=== PATIENT | female | born 1955 | race Caucasian/White ===

== ENCOUNTER → 2021-10-30 06:57 | Outpatient (CLI) | payer MEDICARE, OTHER, SELFPAY | PROVIDERS: PCP Emergency Medicine; Visit Provider Emergency Medicine | DX: R30.0 Dysuria (principal); B96.29 Other Escherichia coli [E. coli] as the cause of diseases classified elsewhere | CPT/HCPCS: 87086; 87088; 87186 ==

== ENCOUNTER → 2022-04-02 10:00 | Outpatient (CLI) | payer MEDICARE, OTHER, SELFPAY ==
[2022-04-02 14:56] LABS: Basophils # 0.1 K/mm3 (0-0.2); Basophils % 0.8 % (0.1-2.0); Eosinophils # 0.1 K/mm3 (0.0-0.4); Eosinophils % 1.3 % (0.1-12.0); Hematocrit 42.3 % (37.0-47.0); Hemoglobin 13.3 g/dL (12.2-16.2); Lymphocytes # 2.9 K/mm3 (0.7-4.5); Lymphocytes % 38.5 % (10-50); Mean Corpuscular HGB Conc 31.4 g/dL (31.8-35.4); Mean Corpuscular Hemoglobin 28.8 pg (27.0-31.2); Mean Corpuscular Volume 91.7 fl (81-99); Mean Platelet Volume 8.2 fl (7.4-10.4); Monocytes # 0.3 K/mm3 (0.1-1.0); Monocytes % 4.4 % (1.7-9.3); Neutrophils # 4.1 K/mm3 (1.8-7.8); Platelet Count 303 K/mm3 (142-424); Red Blood Count 4.61 M/mm3 (4.20-5.40); White Blood Count 7.5 K/mm3 (4.8-10.8)
[2022-04-02 15:16] LABS: Alanine Aminotransferase 15 U/L (12-78); Albumin Level 4.1 g/dl (3.5-5.0); Albumin/Globulin Ratio 1.7 (1.1-1.8); Alkaline Phosphatase 109 U/L (38-126); Anion Gap 8.8 mEq/L (5-15); Aspartate Amino Transferase 23 U/L (14-36); Bilirubin,Total 0.3 mg/dl (0.2-1.3); Blood Urea Nitrogen 17 mg/dl (7-17); Calcium 9.2 mg/dl (8.4-10.2); Carbon Dioxide 34 mmol/L (22.0-30.0); Chloride 102 mmol/L (98-107); Chol/HDL Ratio 3.1 (1-3.5); Cholesterol 133 mg/dl (140-200); Estimated Glomerular Filt Rate 83 ml/min (>60); GFR (African American) 101 ML/MIN (>60); Globulin 2.4 g/dL (1.3-3.2); Glucose 69 mg/dl (74-100); HDL Cholesterol 43 mg/dl (40-60); Potassium 3.8 mmoL/L (3.5-5.1); Sodium 141 mmol/L (136-145); Total Protein,Serum 6.5 g/dl (6.3-8.2); Triglycerides 220 mg/dl (30-150); VLDL Cholesterol 44 mg/dL (0-40)
[2022-04-02 15:27] LABS: Direct LDL Cholesterol 59.01 mg/dL (100-129)
[2022-04-02 15:33] LABS: 25-OH Vitamin D, Total 23.4 ng/mL (30-100)
[2022-04-02 15:47] LABS: Thyroid Stimulating Hormone 3.83 uIU/mL (0.465-4.68)
[2022-04-02 15:55] LABS: Hemoglobin A1C 6.1 % (4.0-6.0)
== END ==
PROVIDERS: PCP Emergency Medicine; Visit Provider Emergency Medicine
DX: E11.9 Type 2 diabetes mellitus without complications (principal); E55.9 Vitamin D deficiency, unspecified; Z79.84 Long term (current) use of oral hypoglycemic drugs; Z79.899 Other long term (current) drug therapy
CPT/HCPCS: 80053; 80061; 82306; 83036; 84439; 84443; 85025

== ENCOUNTER → 2022-04-25 08:10 | Outpatient (CLI) | payer MEDICARE, OTHER, SELFPAY | PROVIDERS: PCP Emergency Medicine; Visit Provider Nurse Practitioner Family | DX: Z78.0 Asymptomatic menopausal state (principal) ==

== ENCOUNTER → 2022-07-22 23:13 | Outpatient (CLI) | payer MEDICARE, OTHER, SELFPAY | PROVIDERS: PCP Emergency Medicine; Visit Provider Emergency Medicine | DX: R82.90 Unspecified abnormal findings in urine (principal); B96.29 Other Escherichia coli [E. coli] as the cause of diseases classified elsewhere | CPT/HCPCS: 87086; 87088; 87186 ==

== ENCOUNTER → 2022-08-08 14:17 | Outpatient (CLI) | payer MEDICARE, OTHER, SELFPAY ==
--- NOTE | 2022-08-08 14:26 | XR_ITS ---
FINAL REPORT CLINICAL HISTORY: diabetic right foot ulcer COMPARISON: None FINDINGS: RIGHT FOOT: Three views of the right foot were obtained. There is no acute fracture or dislocation. Hallux valgus deformity. Moderate degenerative change 1st MTP. Mild degenerative change elsewhere. Small calcaneal spurs. IMPRESSION: Degenerative changes with no acute bony abnormality. Reviewed, Interpreted and Dictated by Toy Gore III, MD Transcribed by Kaylie Deutsch Authenticated and [facility]
--- NOTE | 2022-08-08 14:26 | XR_ITS ---
FINAL REPORT CLINICAL HISTORY: diabetic left foot ulcer COMPARISON: None FINDINGS: LEFT FOOT: Three views of the left foot were obtained. There is no acute fracture or dislocation. There is hallux valgus deformity. There is mild degenerative change. There are small calcaneal spurs. No acute bony erosions. IMPRESSION: Degenerative change with no acute bony abnormality. Reviewed, Interpreted and Dictated by Toy Gore III, MD Transcribed by Kaylie Deutsch Authenticated and [facility]
[2022-08-08 15:55] LABS: Basophils % 0.8 % (0.1-2.0); Eosinophils # 0.1 K/mm3 (0.0-0.4); Eosinophils % 1.5 % (0.1-12.0); Hematocrit 39.1 % (37.0-47.0); Hemoglobin 12.3 g/dL (12.2-16.2); Lymphocytes # 2.7 K/mm3 (0.7-4.5); Lymphocytes % 48.5 % (10-50); Mean Corpuscular HGB Conc 31.6 g/dL (31.8-35.4); Mean Corpuscular Hemoglobin 29.1 pg (27.0-31.2); Mean Platelet Volume 7.6 fl (7.4-10.4); Monocytes # 0.3 K/mm3 (0.1-1.0); Monocytes % 5.9 % (1.7-9.3); Neutrophils # 2.4 K/mm3 (1.8-7.8); Neutrophils % 43.4 % (37.0-80.0); Platelet Count 314 K/mm3 (142-424); Red Blood Count 4.24 M/mm3 (4.20-5.40); White Blood Count 5.6 K/mm3 (4.8-10.8)
[2022-08-08 16:10] LABS: Chloride 100 mmol/L (98-107)
[2022-08-08 16:11] LABS: Potassium 4.1 mmoL/L (3.5-5.1); Sodium 138 mmol/L (136-145)
[2022-08-08 16:13] LABS: Alanine Aminotransferase 39 U/L (12-78); Alkaline Phosphatase 116 U/L (38-126); Aspartate Amino Transferase 42 U/L (14-36); Bilirubin,Total 0.3 mg/dl (0.2-1.3); Blood Urea Nitrogen 13 mg/dl (7-17); Estimated Glomerular Filt Rate 83 ml/min (>60); GFR (African American) 101 ML/MIN (>60)
[2022-08-08 16:14] LABS: Albumin Level 3.9 g/dl (3.5-5.0); Albumin/Globulin Ratio 1.6 (1.1-1.8); Anion Gap 8.1 mEq/L (5-15); Calcium 8.9 mg/dl (8.4-10.2); Carbon Dioxide 34 mmol/L (22.0-30.0); Globulin 2.5 g/dL (1.3-3.2); Glucose 73 mg/dl (74-100); Total Protein,Serum 6.4 g/dl (6.3-8.2)
[2022-08-08 16:19] LABS: C-Reactive Protein 2.7 mg/L (0-4)
[2022-08-08 18:08] LABS: Erythrocyte Sedimentation Rate 19 mm/hr (0-30)
== END ==
PROVIDERS: PCP Emergency Medicine; Visit Provider Podiatrist
DX: E11.621 Type 2 diabetes mellitus with foot ulcer (principal); L97.509 Non-pressure chronic ulcer of other part of unspecified foot with unspecified severity; Z79.84 Long term (current) use of oral hypoglycemic drugs
CPT/HCPCS: 36415; 73630; 80053; 85025; 85651; 86140

== ENCOUNTER → 2022-09-02 10:21 | Outpatient (CLI) | payer MEDICARE, OTHER, SELFPAY ==
--- NOTE | 2022-09-02 10:31 | XR_ITS ---
FINAL REPORT CLINICAL HISTORY: left wrist pain FINDINGS: 3 views of the left wrist were obtained. There is no acute fracture or dislocation. There are mild and moderate degenerative changes greatest at the radial aspect of the wrist. There is no soft tissue abnormality. IMPRESSION: Mild and moderate degenerative change. Reviewed, Interpreted and Dictated by Toy Gore III, MD Transcribed by [employer] Authenticated and [facility]
== END ==
PROVIDERS: PCP Emergency Medicine; Visit Provider Orthopaedic Surgery
DX: M25.532 Pain in left wrist (principal)
CPT/HCPCS: 73110

== ENCOUNTER → 2022-09-10 11:37 | Outpatient (CLI) | payer MEDICARE, OTHER, SELFPAY ==
--- NOTE | 2022-09-10 11:43 | XR_ITS ---
FINAL REPORT CLINICAL HISTORY: Rt knee pain x 1 month, NKT, pain @ medial epicondyle. FINDINGS: Right knee Four views were obtained. There is no acute fracture or dislocation. The joint spaces appear normal. No joint effusion is identified. No soft tissue abnormality is identified. IMPRESSION: No acute process. Reviewed, Interpreted and Dictated by Toy Gore III, MD Transcribed by Janel Aparicio Authenticated and . [facility]
--- NOTE | 2022-09-10 11:43 | XR_ITS ---
FINAL REPORT CLINICAL HISTORY: Lt knee pain @ internal epicondyle x 1 month, NKT. Pain radiates up to ischium FINDINGS: Left knee Three views were obtained. There is no acute fracture or dislocation. There are mild degenerative changes. Small joint effusion is identified. No soft tissue abnormality is identified. IMPRESSION: Mild degenerative changes and small joint effusion. Reviewed, Interpreted and Dictated by Toy Gore III, MD Transcribed by Janel Aparicio Authenticated and [facility]
== END ==
PROVIDERS: PCP Emergency Medicine; Visit Provider Orthopaedic Surgery
DX: M25.561 Pain in right knee (principal); M25.562 Pain in left knee
CPT/HCPCS: 73562

== ENCOUNTER → 2022-10-01 23:13 | Outpatient (CLI) | payer MEDICARE, OTHER, SELFPAY ==
[2022-10-01 18:58] LABS: Amphetamine/Metha Screen,Urine Positive ng/ml (<1000); Barbiturates Screen,Urine Negative ng/ml (<200)
[2022-10-01 18:59] LABS: Benzodiazepines Screen,Urine Positive ng/ml (<200)
[2022-10-01 19:00] LABS: Cannabinoid Screen,Urine Negative ng/ml (<50); Cocaine Screen,Urine Negative ng/ml (<300)
[2022-10-01 19:01] LABS: Methadone Screen,Urine Negative ng/ml (<300)
[2022-10-01 19:02] LABS: Opiate Screen,Urine Positive ng/ml (<300)
[2022-10-01 19:03] LABS: Phencyclidine Screen,Urine Negative ng/ml (<25)
== END ==
PROVIDERS: PCP Emergency Medicine; Visit Provider Emergency Medicine
DX: Z79.899 Other long term (current) drug therapy (principal)
CPT/HCPCS: 80305

== ENCOUNTER → 2022-10-08 14:00 | Outpatient (CLI) | payer MEDICARE, OTHER, SELFPAY ==
[2022-10-08 19:52] LABS: Phencyclidine Screen,Urine Negative ng/ml (<25)
[2022-10-08 19:59] LABS: Amphetamine/Metha Screen,Urine Negative ng/ml (<1000)
[2022-10-08 20:00] LABS: Barbiturates Screen,Urine Negative ng/ml (<200)
[2022-10-08 20:01] LABS: Benzodiazepines Screen,Urine Positive ng/ml (<200); Cannabinoid Screen,Urine Negative ng/ml (<50)
[2022-10-08 20:03] LABS: Methadone Screen,Urine Negative ng/ml (<300)
[2022-10-08 20:04] LABS: Cocaine Screen,Urine Negative ng/ml (<300); Opiate Screen,Urine Negative ng/ml (<300)
== END ==
PROVIDERS: PCP Emergency Medicine; Visit Provider Emergency Medicine
DX: Z79.899 Other long term (current) drug therapy (principal); N39.0 Urinary tract infection, site not specified
CPT/HCPCS: 80305; 87086

== ENCOUNTER → 2022-12-04 23:16 | Outpatient (CLI) | payer MEDICARE, OTHER, SELFPAY ==
[2022-12-04 19:37] LABS: Amphetamine/Metha Screen,Urine Positive ng/ml (<1000)
[2022-12-04 19:38] LABS: Barbiturates Screen,Urine Negative ng/ml (<200)
[2022-12-04 19:39] LABS: Benzodiazepines Screen,Urine Positive ng/ml (<200); Cannabinoid Screen,Urine Negative ng/ml (<50)
[2022-12-04 19:40] LABS: Cocaine Screen,Urine Negative ng/ml (<300)
[2022-12-04 19:41] LABS: Methadone Screen,Urine Negative ng/ml (<300)
[2022-12-04 19:42] LABS: Opiate Screen,Urine Negative ng/ml (<300); Phencyclidine Screen,Urine Negative ng/ml (<25)
[2022-12-04 19:58] LABS: Creatinine,Urine Random 36 mg/dL (Not Estab.); Microalbumin < 6.000 mg/L (0-16.7)
== END ==
PROVIDERS: PCP Emergency Medicine; Visit Provider Emergency Medicine
DX: Z79.899 Other long term (current) drug therapy (principal); E11.9 Type 2 diabetes mellitus without complications; N39.0 Urinary tract infection, site not specified; B95.2 Enterococcus as the cause of diseases classified elsewhere; Z79.84 Long term (current) use of oral hypoglycemic drugs
CPT/HCPCS: 80305; 82043; 82570; 87086; 87088; 87186

== ENCOUNTER → 2022-12-30 11:11 | Outpatient (CLI) | payer MEDICARE, OTHER, SELFPAY ==
--- NOTE | 2022-12-30 11:15 | XR_ITS ---
FINAL REPORT CLINICAL HISTORY: neck pain FINDINGS: CERVICAL SPINE Five views were obtained. There is no acute fracture. There are moderate degenerative changes with multilevel osteophytes. There is no malalignment. IMPRESSION: Moderate degenerative changes. Reviewed, Interpreted and Dictated by Toy Gore III, MD Transcribed by Janel Aparicio Authenticated and [facility]
--- NOTE | 2022-12-30 11:15 | XR_ITS ---
FINAL REPORT CLINICAL HISTORY: knee pain FINDINGS: LEFT KNEE Three views were obtained. There is no fracture or dislocation. Mild degenerative changes are present. No soft tissue abnormality is identified. IMPRESSION: No acute process. Reviewed, Interpreted and Dictated by Toy Gore III, MD Transcribed by Janel Aparicio Authenticated and [facility]
== END ==
PROVIDERS: PCP Emergency Medicine; Visit Provider Emergency Medicine
DX: M54.2 Cervicalgia; M25.562 Pain in left knee
CPT/HCPCS: 72050; 73562

== ENCOUNTER → 2023-02-09 06:44 | Outpatient (CLI) | payer MEDICARE, OTHER, SELFPAY ==
[2023-02-09 20:21] LABS: Amphetamine/Metha Screen,Urine Negative ng/ml (<1000); Barbiturates Screen,Urine Negative ng/ml (<200)
[2023-02-09 20:22] LABS: Benzodiazepines Screen,Urine Positive ng/ml (<200)
[2023-02-09 20:23] LABS: Cannabinoid Screen,Urine Negative ng/ml (<50); Cocaine Screen,Urine Negative ng/ml (<300)
[2023-02-09 20:24] LABS: Methadone Screen,Urine Negative ng/ml (<300); Opiate Screen,Urine Negative ng/ml (<300)
[2023-02-09 20:25] LABS: Phencyclidine Screen,Urine Negative ng/ml (<25)
== END ==
PROVIDERS: PCP Emergency Medicine; Visit Provider Emergency Medicine
DX: M54.2 Cervicalgia (principal)
CPT/HCPCS: 80305

== ENCOUNTER → 2023-03-02 17:06 | Outpatient (CLI) | payer MEDICARE, OTHER, SELFPAY ==
--- NOTE | 2023-03-02 17:07 | MR_ITS ---
FINAL REPORT CLINICAL HISTORY: neck pain. PATIENT FELL AND HIT LEFT SIDE OF HEAD AND NECK PAIN SINCE. RIGHT SIDED NECK PAIN. HEADACHE COMPARISON: None FINDINGS: Multi planar MR imaging was obtained of the cervical spine. There is abnormal decreased signal throughout the cervical discs. The vertebrae are of normal height. There is no malalignment. The cervical cord demonstrates normal signal and configuration. C2-C3: There is no evidence of significant disc bulge or protrusion. There is no significant facet hypertrophy. C3-C4: A moderate annular bulge is present along with endplate hypertrophy eccentric to the right. There is moderate right neural foraminal narrowing. C4-C5: A moderate annular bulge is present along with endplate hypertrophy. There is moderate bilateral neuroforaminal narrowing present. C5-C6: There is no evidence of significant disc bulge or protrusion. There is no significant facet hypertrophy. C6-C7: A mild to moderate bulge is present along with mild to moderate bilateral neural foraminal narrowing. C7-T1: There is a left posterolateral disc protrusion with high-grade compromise of the left C7 and T1 neural foramen. IMPRESSION: Multilevel cervical disc disease, with neuroforaminal narrowing most severe on the left side at the C7-T1 level as described. Reviewed, Interpreted and Dictated by Azael Lindsey MD Transcribed by Mariana Santamaria Authenticated and [facility]
== END ==
PROVIDERS: PCP Emergency Medicine; Visit Provider Emergency Medicine
DX: M54.2 Cervicalgia (principal)
CPT/HCPCS: 72141; 76376

== ENCOUNTER → 2023-03-10 07:11 | Outpatient (CLI) | payer MEDICARE, OTHER, SELFPAY ==
[2023-03-10 22:09] LABS: Amphetamine/Metha Screen,Urine Negative ng/ml (<1000)
[2023-03-10 22:10] LABS: Barbiturates Screen,Urine Negative ng/ml (<200)
[2023-03-10 22:11] LABS: Benzodiazepines Screen,Urine Positive ng/ml (<200); Cocaine Screen,Urine Negative ng/ml (<300)
[2023-03-10 22:12] LABS: Methadone Screen,Urine Negative ng/ml (<300)
[2023-03-10 22:13] LABS: Cannabinoid Screen,Urine Negative ng/ml (<50); Opiate Screen,Urine Positive ng/ml (<300)
[2023-03-10 22:14] LABS: Phencyclidine Screen,Urine Negative ng/ml (<25)
== END ==
PROVIDERS: PCP Emergency Medicine; Visit Provider Emergency Medicine
DX: N39.0 Urinary tract infection, site not specified (principal); Z79.899 Other long term (current) drug therapy; B96.29 Other Escherichia coli [E. coli] as the cause of diseases classified elsewhere
CPT/HCPCS: 80305; 87086

== ENCOUNTER 2023-05-08 18:25 | Outpatient (CLI) | payer MEDICARE, OTHER, SELFPAY ==
[2023-05-08 18:36] LABS: Amphetamine/Metha Screen,Urine Negative ng/ml (<1000)
[2023-05-08 18:37] LABS: Barbiturates Screen,Urine Negative ng/ml (<200)
[2023-05-08 18:38] LABS: Benzodiazepines Screen,Urine Negative ng/ml (<200); Cannabinoid Screen,Urine Negative ng/ml (<50)
[2023-05-08 18:40] LABS: Cocaine Screen,Urine Negative ng/ml (<300)
[2023-05-08 18:42] LABS: Phencyclidine Screen,Urine Negative ng/ml (<25)
[2023-05-08 18:52] LABS: Opiate Screen,Urine Negative ng/ml (<300)
[2023-05-08 20:11] LABS: Methadone Screen,Urine Negative ng/ml (<300)
[2023-05-13 13:11] LABS: Alprazolam Negative (Cutoff=100); Benzodiazepines Positive ng/mL (Cutoff=100); Clonazepam Negative (Cutoff=100); Flurazepam Negative (Cutoff=100); Lorazepam Negative (Cutoff=100); Midazolam Negative (Cutoff=100); Opiates Negative (Cutoff=100); Temazepam Negative (Cutoff=100); Triazolam Negative (Cutoff=100)
== END 2023-05-08 23:59 ==
PROVIDERS: PCP Internal Medicine; Visit Provider Internal Medicine
DX: N39.0 Urinary tract infection, site not specified (principal); Z79.899 Other long term (current) drug therapy; B96.29 Other Escherichia coli [E. coli] as the cause of diseases classified elsewhere
CPT/HCPCS: 80307; 80346; 80361; 80365; 87086; G0480

== ENCOUNTER 2024-12-23 10:03 | Outpatient (CLI) | payer MEDICARE, OTHER, SELFPAY ==
--- OUTSIDE RECORDS SUMMARY | 2024-07-23 17:30 | XMS_ITS ---
Author Organization [facility] Address [address] [place] [address] Care Team Providers Care Catheterization Laboratory Technician Name Role Phone Pop Ellington Primary Care Provider Migration, Provider Unavailable Unavailable [facility]AS[facility] VISIT [facility] Encounter Medications Medication SIG (Take, Route, Frequency, Duration) Notes Start Date End Date Status Tylenol Extra Strength 500 MG 2 tab(s) orally Q6H prn Active Jardiance 25 MG 1 tab(s) orally once a day (in the morning) Active DULoxetine HCl 30 MG 1 cap(s) orally 2 times a day; Duration: 30 day(s) 07/22/2021 Active Methocarbamol 750 MG 1 tab(s) orally 1-2 times daily Active Ciprofloxacin HCl 500 MG 1 tab(s) orally every 12 hours; Duration: 10 day(s) 07/22/2021 Active Pantoprazole Sodium 40 MG 1 tab(s) orally once a day; Duration: 30 day(s) Active Atorvastatin Calcium 80 MG 1 tab(s) orally once a day; Duration: 30 day(s) Active Vitamin D3 10 MCG 1 TAB(S) ORALLY ONCE A DAY *Please review and pick correct strength-formulatio n from [employer] options. If intended option is not shown, discontinue and re-order from Quick Search* Active Cetirizine HCl 10 MG 1 tab(s) orally once a day Active Aspirin 325 MG 1 tab(s) orally once a day Active Macrobid 100 MG 1 cap(s) orally 2 times a day; Duration: 7 days 07/29/2021 Active diazePAM 5 MG 1 tab(s) orally 1-2 times daily prn Active Naproxen 500 MG 1 tab(s) orally 2 times a day prn Active Montelukast Sodium 10 MG 1 tab(s) orally once a day; Duration: 30 day(s) Active Levothyroxine Sodium 25 MCG 1 tab(s) orally once a day; Duration: 30 day(s) Active glipiZIDE ER 5 MG 1 tab(s) orally once a day; Duration: 90 days has been out 2 weeks Active Gabapentin 800 MG 1 cap(s) orally 3 times a day; Duration: 30 days 03/31/2011 Active guaiFENesin 400 MG 1 tab(s) orally every 4 hours prn Active Encounters Encounter Location Date Provider Diagnosis [facility] [address] [place] [address] 07/23/2024 Provider Migration Dysuria R30.0 ; Diabetes mellitus type 2, noninsulin dependent E11.9 and Generalized anxiety disorder F41.1 Assessments Encounter Date Diagnosis (ICD Code) Assessment Notes Treatment Notes Treatment Clinical Notes Section Notes 07/23/2024 Dysuria (ICD-10 - R30.0) 07/23/2024 Diabetes mellitus type 2, noninsulin dependent (ICD-10 - E11.9) 07/23/2024 Generalized anxiety disorder (ICD-10 - F41.1) Plan Of Treatment Medication Medication Name Sig Start Date Stop Date Notes DULoxetine HCl 30 MG 1 cap(s) orally 2 times a day; Duration: 30 day(s) 07/22/2021 Ciprofloxacin HCl 500 MG 1 tab(s) orally every 12 hours; Duration: 10 day(s) 07/22/2021 Macrobid 100 MG 1 cap(s) orally 2 times a day; Duration: 7 days 07/29/2021 glipiZIDE ER 5 MG 1 tab(s) orally once a day; Duration: 90 days has been out 2 weeks Gabapentin 800 MG 1 cap(s) orally 3 times a day; Duration: 30 days 03/31/2011 Progress Notes * Eun MASSEY:[birth year] (69 yo F)Acc No.[id number]:07/23/2024 Patient: Eun LUCERO Provider: Lance Nunez DOB:1955 A ge:69 Y S ex:Female Date:07/23/2024 Address:[address] [place] [address] [address], [place], [id number] Pcp:Pop Ellington Subjective: * Chief Complaints: * 1 . [facility] Conversion Encounter. * Medical History: * Medications: T aking guaiFENesin 400 MG Tablet 1 tab(s) orally every 4 hours prn , Taking Naproxen 500 MG Tablet Delayed Release 1 tab(s) orally 2 times a day prn , Taking diazePAM 5 MG Tablet 1 tab(s) orally 1-2 times daily prn , Taking Levothyroxine Sodium 25 MCG Tablet 1 tab(s) orally once a day , Taking Montelukast Sodium 10 MG Tablet 1 tab(s) orally once a day , Taking Pantoprazole Sodium 40 MG Tablet Delayed Release 1 tab(s) orally once a day , Taking Vitamin D3 10 MCG TABLET 1 TAB(S) ORALLY ONCE A DAY , Notes to Pharmacist: *Please review and pick correct strength-formulation from [facility] options. If intended option is not shown, discontinue and re-order from Quick Search*, Taking Atorvastatin Calcium 80 MG Tablet 1 tab(s) orally once a day , Taking Aspirin 325 MG Tablet 1 tab(s) orally once a day , Taking Cetirizine HCl 10 MG Tablet 1 tab(s) orally once a day , Taking Jardiance 25 MG Tablet 1 tab(s) orally once a day (in the morning) , Taking Tylenol Extra Strength 500 MG Tablet 2 tab(s) orally Q6H prn , Taking Methocarbamol 750 MG Tablet 1 tab(s) orally 1-2 times daily Objective: * Vitals: Assessment: * Assessment: 1. D ysuria - R30.0 (Primary) 2 . D iabetes mellitus type 2, noninsulin dependent - E11.9 3 . G eneralized anxiety disorder - F41.1 Plan: * Treatment: 2. D iabetes mellitus type 2, noninsulin dependent Refill glipiZIDE ER Tablet Extended Release 24 Hour, 5 MG, 1 tab(s), orally, once a day, 90 days, 90, Refills 0, Notes to Pharmacist: has been out 2 weeks. 3. G eneralized anxiety disorder Start DULoxetine HCl Capsule Delayed Release Particles, 30 MG, 1 cap(s), orally, 2 times a day, 30 day(s), 60. 4. O thers Refill Gabapentin Tablet, 800 MG, 1 cap(s), orally, 3 times a day, 30 days, 90 Capsule, Refills 1;?Start Macrobid Capsule, 100 MG, 1 cap(s), orally, 2 times a day, 7 days, 14 Capsule, Refills 0.? * * Electronic signature of Prov ferchor Migration on 12/26/2024 at 09:41 AM EDT Sign off status: Pending * Provider: Lance hogan Migration Date: 0 07/23/2024 Generated for Yandel wilson/Monster/Antonella on: 0 12/26/2024 09:41 AM EDT
[2024-12-23 15:16] LABS: Hematocrit 39.2 % (37.0-47.0); Hemoglobin 12.3 g/dL (12.2-16.2); Immature Granulocytes % 0.5 %; Mean Corpuscular HGB Conc 31.4 g/dL (31.8-35.4); Mean Corpuscular Hemoglobin 28.4 pg (27.0-31.2); Mean Corpuscular Volume 90.5 fl (81-99); Nucleated Red Blood Cells % 0 %; Platelet Count 248 K/mm3 (142-424); Red Blood Count 4.33 M/mm3 (4.20-5.40); Red Cell Distribution Width-SD 43.5 fL; White Blood Count 6.4 K/mm3 (4.8-10.8)
[2024-12-23 17:53] LABS: Albumin Level 4.3 g/dl (3.5-5.0); Chloride 106 mmol/L (98-107); Sodium 139 mmol/L (136-145)
[2024-12-23 17:54] LABS: Potassium 4.0 mmoL/L (3.5-5.1)
[2024-12-23 17:56] LABS: Alanine Aminotransferase 51 U/L (12-78); Albumin/Globulin Ratio 1.7 (1.1-1.8); Alkaline Phosphatase 106 U/L (38-126); Anion Gap 11.0 mEq/L (5-15); Aspartate Amino Transferase 45 U/L (14-36); Bilirubin,Total 0.4 mg/dl (0.2-1.3); Blood Urea Nitrogen 14 mg/dl (7-17); Carbon Dioxide 26 mmol/L (22.0-30.0); Cholesterol 158 mg/dl (140-200); Creatinine,Serum 0.70 mg/dl (0.52-1.04); Estimated Glomerular Filt Rate 83 ml/min (>60); GFR (African American) 100 ML/MIN (>60); Globulin 2.5 g/dL (1.3-3.2); Total Protein,Serum 6.8 g/dl (6.3-8.2); Triglycerides 135 mg/dl (30-150)
[2024-12-23 17:57] LABS: Calcium 9.7 mg/dl (8.4-10.2); Glucose 153 mg/dl (74-100); HDL Cholesterol 53 mg/dl (40-60)
[2024-12-23 18:27] LABS: Thyroid Stimulating Hormone 2.51 uIU/mL (0.465-4.68)
[2024-12-23 19:35] LABS: Hemoglobin A1C 6.4 % (4.0-6.0)
--- OUTSIDE RECORDS SUMMARY | 2024-12-26 09:40 | XMS_ITS | Encounter Summary ---
Author Organization [facility] Address [address] [place] [address] Care Team Providers Care Roll Line Operator Name Role Phone Unavailable Primary Care Provider Unavailabl e Encounter Details Date Type Department Care Team (Late st Contact Info) Description 03/02/2023 Orders Only External Location [address] [place] [address] Lenard Mcleod MD [address] [place] [address] Social History Tobacco Use Types Packs/Day Years Used Date Smoking Tobacco: Never Assessed Comments Unknown Sex and Gender Information Value Date Recorded Sex Assigned at Not on file Legal Sex Female 2:52 PM EST Gender Identity Not on file Sexual Orientation Not on file documented as of this encounter Plan of Treatment Not on file documented as of this encounter Procedures Procedure Name Priority Date/Time Associated Diagnosis Comments MR OUTSIDE IMAGES 03/02/2023 5:07 PM EST documented in this encounter Results * MR transfer of outside films (03/02/2023 5:07 PM EST) Anatomical Region Laterality Modality Magnetic Resonan ce 03/02/2023 5:07 PM EST us Lenard Mcleod MD IMG MRI PROCEDURES Final Res ult documented in this encounter Visit Diagnoses Not on filedocumented in this encounter
--- OUTSIDE RECORDS SUMMARY | 2024-12-26 09:40 | XMS_ITS | Clinical Summary ---
Author Organization [facility] Address [address] [place] [address] Care Team Providers Care Assistive Technology Trainer Name Role Phone Unavailable Primary Care Provider Unavailabl e Social History Tobacco Use Types Packs/Day Years Used Date Smoking Tobacco: Never Assessed Comments Unknown Sex and Gender Information Value Date Recorded Sex Assigned at Not on file Legal Sex Female 2:52 PM EST Gender Identity Not on file Sexual Orientation Not on file Plan of Treatment Health Maintenance Due Date Last Done Comments [facility]-Bone Density Scan 1955 [facility]-Depression Screening 1955 [facility]-Infant/Child/Adol SDOH Screenings 1955 [facility]- SDOH Screenings 1973 [facility]-Adult SDOH Screenings 1973 [facility]-DTaP,Tdap,and Td Vaccine s (1 - Tdap) 1974 CT Colonography 2000 Colonoscopy 2000 FIT-DNA 2000 FIT 2000 FOBT 2000 Sigmoidoscopy 2000 [facility]-Colorectal Cancer Screening 2000 [facility]-Pneumococcal Vaccine: 50 + Years (1 of 1 - PCV) 2005 [facility]-Zoster Vaccines (1 of 2) 2005 RQG-VANMR-99 Vaccine (1 - 20 24-25 season) 2023 [facility]-Influenza Vaccine (#1) 2024 [facility]-RSV Vaccine: 60+ Years o r (1 - 1-dose 75+ series) 2030 HPV Vaccines Aged Out No longer eligi ble based on patient's age to complete this topic [facility]-HIB Vaccines Aged Out No longer e ligible based on patient's age to complete this topic [facility]-Hepatitis A Vaccines Aged Out No longer eligible based on patient's age to complete this topic [facility]-IPV Vaccines Aged Out No longer e ligible based on patient's age to complete this topic [facility]-Rotavirus Vaccines Aged Out No lo nger eligible based on patient's age to complete this topic Insurance [employer]ICA[employer]
== END 2024-12-23 23:59 ==
LOC: LAB.DROPOF 12-26 09:31
PROVIDERS: PCP Family Medicine; Visit Provider Family Medicine
DX: E78.5 Hyperlipidemia, unspecified (principal); I10 Essential (primary) hypertension; E11.9 Type 2 diabetes mellitus without complications
CPT/HCPCS: 80053; 80061; 83036; 84443; 85025

== ENCOUNTER 2025-03-13 23:45 | Emergency (ER) | payer MEDICARE, OTHER, SELFPAY ==
--- OUTSIDE RECORDS SUMMARY | 2024-05-06 09:45 | XMS_ITS | Continuity of Care Document ---
Author Organization [facility] Address [address] [place] [address] Phone Care Team Providers Care Campground Caretaker Name Role Phone Chandan PT, DPT, Lance Unavailable Unavailable Procedures Procedure Date Therapeutic Activities Neuromuscular Re-Ed Manual Therapy Therapeutic Activities Neuromuscular Re-Ed Manual Therapy Doc neg elder mal no plan PRES/ABSN URINE INCON ASSESS PT Evaluation Low Complexity Neuromuscular Re-Ed Therapeutic Activities Therapeutic Activities Therapeutic Exercise Manual Therapy Therapeutic Activities Therapeutic Exercise Manual Therapy Doc neg elder mal no plan PRES/ABSN URINE INCON ASSESS PT Evaluation Low Complexity Therapeutic Activities Therapeutic Exercise Manual Therapy Therapeutic Activities Therapeutic Exercise Manual Therapy Therapeutic Activities Neuromuscular Re-Ed Therapeutic Exercise Manual Therapy Therapeutic Activities Therapeutic Exercise Manual Therapy Doc neg elder mal no plan PRES/ABSN URINE INCON ASSESS PT Re-Evaluation Therapeutic Activities Therapeutic Exercise Manual Therapy Therapeutic Activities Therapeutic Exercise Manual Therapy Therapeutic Activities Therapeutic Exercise Manual Therapy Therapeutic Activities Neuromuscular Re-Ed Manual Therapy Therapeutic Activities Manual Therapy Therapeutic Activities Therapeutic Exercise Manual Therapy Therapeutic Activities Neuromuscular Re-Ed Manual Therapy Therapeutic Activities Manual Therapy Progress Note Therapeutic Activities Neuromuscular Re-Ed Manual Therapy Therapeutic Activities Neuromuscular Re-Ed Manual Therapy Therapeutic Activities Therapeutic Exercise Manual Therapy Therapeutic Activities Neuromuscular Re-Ed Therapeutic Exercise Manual Therapy Therapeutic Activities Neuromuscular Re-Ed Manual Therapy Therapeutic Activities Neuromuscular Re-Ed Therapeutic Exercise Manual Therapy Neuromuscular Re-Ed Therapeutic Exercise Manual Therapy Doc neg elder mal no plan PRES/ABSN URINE INCON ASSESS PT Evaluation Low Complexity Neuromuscular Re-Ed Therapeutic Activities Manual Therapy Advance Directives Directive Yes / No Effective Date File Name No Information Encounters Encounter Description Practice Location Reason(s) For Visit Diagnoses Date Provider Providers Copied on Encounter [facility], [address], [place], [place], [id number], [place] tel:[phone] [facility] No Information 5 Hawleyonrman Lcuas. . [facility], [address], [place], [place], [id number], tel:[phone] [facility] No Information 4 Hawley Lance. . Referring Provider: Farhad Wise, [address], [place], [address]. tel:[phone] [facility], [address], [place], [place], [address], [place] tel:[phone] [facility] No Information 4 Hawleynorman Elizabethin. . Referring Provider: Farhad Wise, [address], [place], [address]. tel:[phone] [facility], [address], [place], [place], [address], [place] tel:[phone] [facility] No Information 4 Hawley Lance. . Referring Provider: [address], [place], [address]. tel:[phone] [facility], [address], [place], [place], [address], [place] tel:[phone] [facility] No Information 4 Hawley Lance. . Referring Provider: [address], [place], [address]. tel:[phone] [facility], [address], [place], [place], [address], tel:[phone] [facility] No Information 4 Hawley Lance. . Referring Provider: Farhad Wise, [address], [place], [address]. tel:[phone] [facility], [address], [place], [place], [address], [place] tel:[phone] [facility] No Information 4 Chandan Lucas. . Referring Provider: Farhad Wise, [address], [place], [address]. tel:[phone] [facility], [address], [place], [place], [address], [place] tel:[phone] [facility] No Information 4 Chandan Lucas. . Referring Provider: Farhad Wise, [address], [place], [address]. tel:[phone] [facility], [address], [place], [place], [address], [place] tel:[phone] [facility] No Information 4 Chandan Lucas. . Referring Provider: Farhad Wise, [address], [place], [address]. tel:[phone] [facility], [address], [place], [place], [address], [place] tel:[phone] [facility] No Information 4 Chandan Lucas. . Referring Provider: Farhad Wise [address], [place], [address]. tel:[phone] [facility], [address], [place], [place], [address], [place] tel:[phone] [facility] No Information 4 Hawleynorman Lucas. . Referring Provider: Farhad Wise, [address], [place], [address]. tel:[phone] [facility], [address], [place], [place], [address], [place] tel:[phone] [facility] No Information 4 Federico Lebron. . Referring Provider: Farhad Wise, [address], [place], [address]. tel:[phone] [facility], [address], [place], [place], [address], [place] tel:[phone] [facility] No Information 4 Chandan Lucas. . Referring Provider: Farhad Wise [address], [place], [address]. tel:[phone] [facility], [address], [place], [place], [address], [place] tel:[phone] [facility] No Information 4 Chandan Lucas. . Referring Provider: Farhad Wise [address], [place], [address]. tel:[phone] [facility], [address], [place], [place], [address], [place] tel:[phone] [facility] No Information 4 Chandan Lucas. . Referring Provider: Farhad Wise [address], [place], [address]. tel:[phone] [facility], [address], [place], [place], [address], [place] tel:[phone] [facility] No Information 4 Chandan Lucas. . Referring Provider: Farhad Wise, [address], [place], [address]. tel:[phone] [facility], [address], [place], [place], [address], [place] tel:[phone] [facility] No Information 4 Chandan Lucas. . Referring Provider: Farhad Wise, [address], [place], [address]. tel:[phone] [facility], [address], [place], [place], [address], [place] tel:[phone] [facility] No Information 4 Chandan Lucas. . Referring Provider: Farhad Wise, [address], [place], [address]. tel:[phone] [facility], [address], [place], [place], [address], [place] tel:[phone] [facility] No Information 4 Federico Lebron. . Referring Provider: Farhad Wise, [address], [place], [address]. tel:[phone] [facility], [address], [place], [place], [address], [place] tel:[phone] [facility] No Information 4 Chandan Lucas. . Referring Provider: Farhad Wise [address], [place], [address]. tel:[phone] [facility], [address], [place], [place], [address], [place] tel:[phone] [facility] No Information May-2 0-202 4 Hawley Lance. . Referring Provider: [address], [place], [address]. tel:[phone] [facility], [address], [place], [place], [address], [place] tel:[phone] [facility] No Information May-1 6-202 4 Hawley Lance. . Referring Provider: [address], [place], [address]. tel:[phone] [facility], [address], [place], [place], [address], [place] tel:[phone] [facility] No Information May-1 4-202 4 Hawley Lance. . Referring Provider: [address], [place], [address]. tel:[phone] [facility], [address], [place], [place], [address], [place] tel:[phone] [facility] No Information May-0 9- 4 Hawley Lance. . Referring Provider: [address], [place], [address]. tel:[phone] [facility], [address], [place], [place], [address], [place] tel:[phone] [facility] No Information May-0 7-202 4 Hawley Lance. . Referring Provider: [address], [place], [address]. tel:[phone] [facility], [address], [place], [place], [address], tel:[phone] [facility] No Information 4 Chandan Lucas. . Referring Provider: Farhad Wise, [address], [place], [address]. tel:[phone] Family History Family Member Type Diagnosis Age At Onset No Information Payers Payer name Insurance type Covered republican ID Authoriza tion(s) [employer] Medicare Replacement 16 [id number] Social History Type Description Quantity Date Captured Comments Sex Female Smoking Status No Information Chief Complaint And Reason For Visit No Information Reason For Referral Reason For Referral No Information History Of Present Illness Encounter Date Complaint History Of Prese nt Illness No Information Functional Status Date Functional Assessmen t No Information Instructions Date Instruction Additional Infor mation No Information Assessments Type Assessment Date No Information Patient Care Teams Name Effective Dates (start - stop) Status Members No Information
[2025-03-13 23:51] VITALS: BP 159/88; PULSE 100; RESP 20; TEMP 36.6; O2SAT 98; BMI 21.6
--- OUTSIDE RECORDS SUMMARY | 2025-03-13 23:52 | XMS_ITS | Encounter Summary ---
Author Organization [facility] Address [address] [place] [address] Care Team Providers Care Boomboat Operator Name Role Phone Unavailable Primary Care Provider Unavailabl e Encounter Details Date Type Department Care Team (Late st Contact Info) Description 03/02/2023 Orders Only External Location [address] [place] [address] Lenard Mcleod MD [address] [place] [address] Social History Tobacco Use Types Packs/Day Years [...]
--- OUTSIDE RECORDS SUMMARY | 2025-03-13 23:53 | XMS_ITS | Clinical Summary ---
Author Organization Healthcare Address [address] [place] [address] Care Team Providers Care Profile Saw Setup Operator Name Role Phone Unavailable Primary Care [...] 2005 [facility]-Zoster Vaccines (1 of 2) 2005 [id number] Vaccine (1 - 20 25-26 season) 2024 [facility]-Influenza Vaccine (#1) 2024 [facility]-RSV Vaccine: 60+ [...]
--- NOTE | 2025-03-13 23:57 | XR_ITS ---
PROCEDURE INFORMATION: Exam: XR Chest Exam date and time: 03/14/2025 12:02 AM Age: 69 years old Clinical indication: Injury or trauma; Fall TECHNIQUE: Imaging protocol: Radiologic exam of the chest. Views: 1 view. COMPARISON: MR CERVICAL SPINE WO CON 03/02/2023 5:07 PM FINDINGS: Lungs: Unremarkable. No consolidation. Pleural spaces: Unremarkable. No pleural effusion. No pneumothorax. Heart/Mediastinum: Unremarkable. No cardiomegaly. Bones/joints: Unremarkable. IMPRESSION: No acute findings.
--- NOTE | 2025-03-13 23:57 | CT_ITS ---
PROCEDURE INFORMATION: Exam: CT Head Without Contrast Exam date and time: 03/14/2025 12:07 AM Age: 69 years old Clinical indication: Injury or trauma; Fall; Additional info: Fall, right forehead injury TECHNIQUE: Imaging protocol: Computed tomography of the head without contrast. Radiation optimization: All CT scans at this facility use at least one of these dose optimization techniques: automated exposure control; mA and/or kV adjustment per patient size (includes targeted exams where dose is matched to clinical indication); or iterative reconstruction. COMPARISON: MR CERVICAL SPINE WO CON 03/02/2023 5:07 PM FINDINGS: Brain: No evidence for intracranial hemorrhage, mass lesions or acute stroke. Intracranial vascular calcifications. Cerebral ventricles: No ventriculomegaly. Pituitary gland and sella: Negative Paranasal sinuses: Visualized sinuses are unremarkable. No fluid levels. Mastoid air cells: Visualized mastoid air cells are well aerated. Orbital cavities: Negative. Bones: Unremarkable. No acute fracture. Soft tissues: Unremarkable. Vasculature: Negative. IMPRESSION: 1. No evidence for intracranial hemorrhage, mass lesions or acute stroke. 2. Intracranial vascular calcifications.
--- NOTE | 2025-03-13 23:57 | CT_ITS ---
PROCEDURE INFORMATION: Exam: CT Cervical Spine Without Contrast Exam date and time: 03/14/2025 12:09 AM Age: 69 years old Clinical indication: Injury or trauma; Fall; Additional info: Fall neck pain TECHNIQUE: Imaging protocol: Computed tomography of the cervical spine without contrast. Radiation optimization: All CT scans at this facility use at least one of these dose optimization techniques: automated exposure control; mA and/or kV adjustment per patient size (includes targeted exams where dose is matched to clinical indication); or iterative reconstruction. COMPARISON: MR CERVICAL SPINE WO CON 03/02/2023 5:07 PM FINDINGS: Bones: Mild straightening of the cervical spine. No fracture or bone destruction. Amne-ur-wdnkmlhm multilevel facet arthropathy Mild multilevel degenerative disc disease with multilevel disc space narrowing and small disc osteophyte complexes. Right atlantoaxial joint osteoarthrosis coronal image 1001/24. Lungs: Lung apices are normal. Soft tissues: Unremarkable. IMPRESSION: 1. Mild straightening of the cervical spine. 2. No fracture or bone destruction. 3. Qfxv-lo-atmthvoo multilevel facet arthropathy Mild multilevel degenerative disc disease with multilevel disc space narrowing and small disc osteophyte complexes. 4. Right atlantoaxial joint osteoarthrosis coronal image 1001/24.
--- NOTE | 2025-03-13 23:57 | XR_ITS ---
PROCEDURE INFORMATION: Exam: XR Pelvis Exam date and time: 03/14/2025 12:02 AM Age: 69 years old Clinical indication: Injury or trauma; Fall TECHNIQUE: Imaging protocol: Radiologic exam of the pelvis. Views: 1 or 2 view. COMPARISON: No relevant prior studies available. FINDINGS: Bones/joints: Unremarkable. No acute fracture. Soft tissues: Unremarkable. IMPRESSION: No acute findings.
[2025-03-14] MEDS: TET/DIPHTH/PERT-ADULT 0.5ML SYRINGE 0.5 ML IM (00:29)
[2025-03-14] MEDS: ACETAMINOPHEN 500MG TAB 1000 MG PO (00:30)
[2025-03-14 00:56] VITALS: BP 143/75; PULSE 95; RESP 18; O2SAT 98
--- NOTE | 2025-03-14 01:13 | ED_ITS ---
Discharge Plan Disposition Patient Disposition: Home, Self-Care Condition: Good Prescriptions Prescriptions: No Action cholecalciferol (vitamin D3) 10 mcg (400 unit) tablet,chewable 10 mcg PO DAILY Qty: 90 2RF diclofenac sodium 1 % gel 2 g topical QID Qty: 100 3RF Rx Instructions: apply to single elbow, wrist or hand; for hand includes palm/fingers/back of hand lidocaine 5 % adhesive patch,medicated 1 patch topical DAILY Qty: 30 0RF Rx Instructions: leave on most painful area for up to 12 hrs aspirin 325 mg tablet,delayed release (DR/EC) See Rx Instructions .ROUTE .COMPLEX Qty: 90 2RF Dose Instruction: TAKE ONE TABLET BY MOUTH ONCE A DAY Rx Instructions: TAKE ONE TABLET BY MOUTH ONCE A DAY atorvastatin 80 mg tablet See Rx Instructions .ROUTE .COMPLEX Qty: 90 1RF Dose Instruction: TAKE ONE TABLET BY MOUTH AT BEDTIME Rx Instructions: TAKE ONE TABLET BY MOUTH AT BEDTIME Jardiance 25 mg tablet See Rx Instructions .ROUTE .COMPLEX Qty: 90 2RF Dose Instruction: TAKE ONE TABLET BY MOUTH ONCE A DAY Rx Instructions: TAKE ONE TABLET BY MOUTH ONCE A DAY glipizide 5 mg tablet extended release 24hr See Rx Instructions .ROUTE .COMPLEX Qty: 90 1RF Dose Instruction: TAKE ONE TABLET BY MOUTH ONCE A DAY Rx Instructions: TAKE ONE TABLET BY MOUTH ONCE A DAY hydrochlorothiazide 12.5 mg tablet See Rx Instructions .ROUTE .COMPLEX Qty: 90 2RF Dose Instruction: TAKE ONE TABLET BY MOUTH ONCE A DAY Rx Instructions: TAKE ONE TABLET BY MOUTH ONCE A DAY levothyroxine 25 mcg tablet See Rx Instructions .ROUTE .COMPLEX Qty: 90 0RF Dose Instruction: TAKE ONE TABLET BY MOUTH ONCE A DAY Rx Instructions: TAKE ONE TABLET BY MOUTH ONCE A DAY lisinopril 2.5 mg tablet See Rx Instructions .ROUTE .COMPLEX Qty: 90 1RF Dose Instruction: TAKE ONE TABLET BY MOUTH ONCE A DAY Rx Instructions: TAKE ONE TABLET BY MOUTH ONCE A DAY montelukast 10 mg tablet See Rx Instructions .ROUTE .COMPLEX Qty: 90 3RF Dose Instruction: TAKE ONE TABLET BY MOUTH EVERY EVENING Rx Instructions: TAKE ONE TABLET BY MOUTH EVERY EVENING pantoprazole 40 mg tablet,delayed release (DR/EC) See Rx Instructions .ROUTE .COMPLEX Qty: 90 1RF Dose Instruction: TAKE ONE TABLET BY MOUTH ONCE A DAY Rx Instructions: TAKE ONE TABLET BY MOUTH ONCE A DAY (DME) OneTouch Ultra Test Strip See Rx Instructions .ROUTE .COMPLEX Qty: 50 0RF Dose Instruction: TEST BLOOD SUGAR TWICE A DAY Rx Instructions: TEST BLOOD SUGAR TWICE A DAY (DME) blood-glucose meter [Accu-Chek Guide Glucose Meter] Mis See Rx Instructions miscellaneous .MEDSUPPLY Qty: 1 0RF Rx Instructions: As directed (DME) Accu-Chek Chiquita Plus test strp Strip See Rx Instructions .MEDSUPPLY Qty: 100 1RF Rx Instructions: As directed once daily (DME) lancets [Accu-Chek Softclix Lancets] Mis See Rx Instructions .MEDSUPPLY Qty: 100 1RF Rx Instructions: As directed once daily cyclobenzaprine 5 mg tablet 5 mg PO BID PRN (Reason: muscle spasm) Qty: 60 0RF escitalopram oxalate [Lexapro] 10 mg tablet 10 mg PO DAILY Qty: 90 1RF methocarbamol 750 mg tablet See Rx Instructions .ROUTE .COMPLEX Qty: 60 1RF Dose Instruction: TAKE ONE TABLET BY MOUTH 2 TIMES A DAY Rx Instructions: TAKE ONE TABLET BY MOUTH 2 TIMES A DAY Referrals Follow up/Referrals: Nasrin Vogel APRN [Primary Care Provider, Family Practice] - See instructions Activity Restrictions/Add. Instructions Additional Instructions/Restrictions: Take Tylenol and ibuprofen as needed for pain. Please follow wound care instructions as discussed. Please follow-up with your primary care provider. Please return to the emergency department if you develop any new or worsening symptoms or become concerned for your health. Clinical Impressions Clinical Impression: Laceration of face, Head trauma Instructions Patient Instructions: DI for Laceration Repair Print Language Print Language: Maori Discharge ED Provider: Lion Steel General Adult HPI General Chief complaint: Wound/Laceration Stated complaint: AO 03/13 2330, fell, lac above right eye Time Seen by Provider: 03/13/25 23:50 Mode of Arrival: Wheelchair Source of Information: Spouse Description of Symptoms (Recalled from ER Triage Doc. by RN): patient states she tripped over something in the floor and fell hitting her head. Denies LOC. Denies blood thinners. Laceration above right eye. Bleeding controlled at this time. History of Present Illness HPI narrative: 69-year-old female with history of diabetes presents after a fall from standing. She tripped over something and fell striking her forehead on the ground. She does not have blood thinners. She has a laceration above her right eye. Happened shortly prior to arrival. Denies any other pain or trauma. Related Data Previous Rx's ?Medication ?Instructions ?Recorded blood sugar diagnostic (OneTouch #50 strips 07/28/22 Ultra Test strips) lidocaine 5 % topical patch 1 patch topical DAILY #30 ea 06/15/23 aspirin 325 mg tablet,delayed See Rx Instructions .Rou te 12/23/24 release .COMPLEX #90 ea atorvastatin 80 mg tablet See Rx Instructions .Route 0 12/23/24 .COMPLEX #90 tabs empagliflozin 25 mg tablet See Rx Instructions .Route 12/23/24 (Jardiance) .COMPLEX #90 tabs glipizide 5 mg tablet, extended See Rx Instructions .R oute 12/23/24 release 24 hr .COMPLEX #90 tabs hydrochlorothiazide 12.5 mg tablet See Rx Instructions .Route 12/23/24 .COMPLEX #90 tabs levothyroxine 25 mcg tablet See Rx Instructions .Route 12/23/24 .COMPLEX #90 tabs lisinopril 2.5 mg tablet See Rx Instructions .Route 0 12/23/24 .COMPLEX #90 tabs montelukast 10 mg tablet See Rx Instructions .Route 0 12/23/24 .COMPLEX #90 tabs pantoprazole 40 mg tablet,delayed See Rx Instructions .Route 12/23/24 release .COMPLEX #90 tabs blood sugar diagnostic (Accu-Chek #100 ea 02/08/25 Chiquita Plus test strips) blood-glucose meter (Accu-Chek #1 ea 02/08/25 Guide Glucose Meter) cholecalciferol (vitamin D3) 10 10 mcg PO DAILY #90 ta bs 02/08/25 mcg (400 unit) chewable tablet diclofenac sodium 1 % topical gel 2 g topical QID #100 grams 02/08/25 lancets (Accu-Chek Softclix #100 ea 02/08/25 Lancets) cyclobenzaprine 5 mg tablet 5 mg PO BID PRN muscle spa sm #60 03/01/25 tabs escitalopram oxalate 10 mg tablet 10 mg PO DAILY #90 t abs 03/07/25 (Lexapro) methocarbamol 750 mg tablet See Rx Instructions .Route 03/07/25 .COMPLEX #60 tabs Allergies Allergy/AdvReac Type Severity Reaction Status Date / Time No Known Allergies Allergy Verified 02/08/25 16:04 [facility] Disclaimer: The information contained in this section may have been updated after the patient was seen, as this information can be updated by other users. Medical History (Updated 03/14/25 @ 01:14 by Lion Steel MD) Fall Cellulitis Hyperthyroidism Vitamin D deficiency Acid reflux Diabetic Foot Ulcer Surgical History (Updated 02/08/25 @ 16:08 by JAY Bartholomew) History of cholecystectomy History of Family History (Updated 02/08/25 @ 16:08 by JAY Bartholomew) Grandfather Cancer Father Cancer Brother Stroke Sister Heart attack Social History Smoking Status: Never smoker alcohol intake: never current occupational status: disabled Travel in the last 8 weeks?: None Have you lived/traveled outside [place] in past 30 days?: No Contact w/someone who lives/traveled outside [place] past 30 days?: No Exposure to someone with infectious disease in past 14 days?: No Do you have a fever (greater than 100.4 F or 38 C)?: No Have you tested positive for COVID-19?: No Exposed to someone with COVID-19 in past 14 days?: No Do you have a sore throat?: No Do you have a cough?: No Do you have any weakness?: No Do you have any diarrhea?: No Are you experiencing any unusual bleeding?: No Do you have any muscle aches/pain?: No Do you have any abdominal pain?: No Are you experiencing loss of taste or smell?: No Other Medical History Have you received the Pneumonia Vaccine: No ROS Obtained: Yes All systems reviewed & no additional complaints except as documented Physical Exam General General appearance: alert and in no apparent distress Head Head exam: normocephalic and other (2 cm laceration over the right eyebrow) Eye Eye exam: Present normal appearance, PERRL and EOMI ENT ENT exam: Present normal oropharynx and normal external ear exam Neck Neck exam: Present normal inspection, full ROM and tenderness (Minimal midline and paraspinal tenderness) Chest Chest inspection: Present normal inspection and symmetric chest wall rise; Absent tenderness Respiratory Respiratory exam: Present normal lung sounds bilaterally; Absent respiratory distress Cardiovascular Cardiovascular exam: Present regular rate and normal rhythm Abdominal Exam Abdominal exam: Present soft; Absent distention, tenderness or guarding Extremities Exam Extremities exam: Present normal inspection; Absent edema or joint swelling Back Exam Back exam: Present normal inspection; Absent tenderness Neurological Exam Neurological exam: Present alert and oriented X3; Absent motor sensory deficit Psychiatric Psychiatric exam: Present normal affect and normal mood Skin Skin exam: Present warm, dry and normal color Lymphatic Lymphatic Findings: no adenopathy Medical Decision Making Medical Records Medical records reviewed: Yes I reviewed the patient's medical records. Screening: Per USPSTF and CDC recommendations, given the prevalence of disease in our region, it is our hospital?s policy to screen for HIV and viral Hepatitis for all patients aged 18 and over and those with ongoing risk factors. Harry Inquiry Pt receiving controlled substance: No Harry was queried for this patient: No Vital Signs: 03/13/25 23:51 03/14/25 00:56 03/14/25 01:15 Temperature 98 F 98.1 F Temperature Source Oral Oral Pulse Rate 95 H 80 Pulse Rate [Left] 100 H Respiratory Rate 20 18 20 Blood Pressure 143/75 H 143/75 H Blood Pressure [Right Arm] 159/88 H Blood Pressure Mean [Right Arm] 111 Blood Pressure Source Automatic Cuff Blood Pressure Source [Right Arm] Automatic Cuff Blood Pressure Position Sitting Blood Pressure Position [Right Arm] Sitting 02 Sat by Pulse Oximetry 98 98 Oxygen Delivery Method Room Air Room Air Room Air Lab Data Lab results reviewed: Yes I reviewed the patient's lab results. Orders (Tests/Meds): ED MEDICATIONS Discontinued Medications Generic Name Dose Route Start Last Admin Trade Name Canelo PRN Reason Stop Dose Admin Acetaminophen 1,000 mg 03/13/25 23:57 03/14/25 00:30 Acetaminophen 500mg Tab PO 03/13/25 23:58 1,000 mg ONCE ONE Administration Tetanus/Reduced Diphtheria/Acell Pertussis 0.5 ml 03/13/25 23:57 03/14/25 00:29 Tet/Diphth/Pert-Adult 0.5ml Syringe IM 03/13/25 23:58 0.5 ml .ONCE ONE Administration ORDERS Category Date Time Status CT cervical spine wo con Stat Cat Scan 03/13/25 23:[address] head/brain wo con Stat Cat Scan 03/13/25 23:57 Completed Chest XR -- portable [XR chest portable] Stat Exams 03/13/25 23:57 Completed Pelvis XR 1-2 views [XR pelvis 1-2V] Stat Exams 03/13/25 23:57 Completed Medical Decision Narrative: 69-year-old female with history of diabetes presents after a fall from standing with a right eyebrow laceration. History was obtained via interactive discussion with patient, family, chart review. On arrival, patient is [afebrile, hemodynamically stable, satting appropriately, alert, oriented x4, GCS 15], moving all extremities spontaneously. Full physical exam performed and significant for small laceration over the right eyebrow, hemostatic Differential includes but is not limited to intracranial trauma intrathoracic trauma intra-abdominal trauma spine trauma extremity trauma. Patient was given tetanus shot and Tylenol for symptomatic management and correction of underlying abnormalities. Workup initiated including CT head, CT C-spine, radiographs of the chest. On re-evaluation, patient [remains afebrile, HD stable.] Imaging independently interpreted by me and significant for no evidence of intracranial bleeding, no cervical fracture, no pneumothorax or pelvic fracture. See radiology read for full review of final results. Given patient history, exam and workup, patient's presentation most likely represents fall with facial laceration. Laceration was repaired with absorbable sutures and patient was discharged in stable condition. Return precautions given.. Procedures Risk/Benefits of Procedure(s) Were Explained: Yes Laceration Laceration 1: Site: face (Right eyebrow) Size (cm): 2.5 Description: linear Depth: involves subcutaneous layer Local Anesthetic: lidocaine 1% and with epi Amount of anesthesia used (mL): 3 Pre-repair: wound explored and irrigated extensively Skin layer closed with: other (Fast gut) Size (cm): 5-0 Number of sutures: 4 Technique: simple, interrupted Critical Care Critical Care Time Critical Care Time: No
[2025-03-14 01:15] VITALS: BP 143/75; PULSE 80; RESP 20; TEMP 36.7; O2SAT 97
== END 2025-03-14 01:21 | disposition home or self-care (01) ==
PROVIDERS: Emergency Provider Emergency Medicine; PCP Family Medicine
DX: S09.90XA Unspecified injury of head, initial encounter (principal); S01.81XA Laceration without foreign body of other part of head, initial encounter; W18.30XA Fall on same level, unspecified, initial encounter
CPT/HCPCS: 12011; 70450; 71045; 72125; 72170; 90471; 90715; 99284; 99285; J2004